=== PATIENT | male | born 1960 | race Caucasian/White ===

== ENCOUNTER 2021-11-01 20:40 | Observation (INO) | payer BC, SELFPAY ==
[2021-11-01 20:55] VITALS: BP 161/98; PULSE 98; RESP 18; TEMP 36.8; O2SAT 98
[2021-11-02] VITALS (10 sets, daily range): BP systolic 129–170; BP diastolic 77–98; PULSE 77–920; RESP 16–18; TEMP 36.7–37.2; O2SAT 93–99; BMI 38.2
--- NOTE | 2021-11-02 | ECHO_ITS ---
Patient Info Name: Bull Lozoya Age: 61 years : 1960 Gender: Male Ht: 68 in Wt: 251 lbs BSA: 2.39 m2 HR: 78 bpm BP: 129 / 86 mmHg Heart Rhythm: Sinus Rhythm Technical Quality: Good Exam Date: 11/02/2021 9:25 AM Exam Location: [facility] Pulmonary Exam Room: [facility] Patient Status: Inpatient Admit Date: 11/02/2021 Staff Ordering Physician: Myesha Lafleur Binding Dyer: Viv Mccloud RDCS Attending Provider: Deneen Edouard MD Referring Physician: Miquel MANLEY; Exam Type: CA echo doppler color flow Study Info Indications - chest pain Complete two-dimensional, color flow and Doppler transthoracic echocardiogram is performed. Summary 1. Complete two-dimensional, color flow and Doppler transthoracic echocardiogram is performed. 2. Left ventricular chamber dimension is normal. 3. Left ventricular systolic function is normal, estimated at 65-70%. 4. There is no aortic valve stenosis. 5. There is trace mitral valve regurgitation. 6. There is trace tricuspid valve regurgitation. 7. No pulmonary hypertension, estimated pulmonary arterial systolic pressure is 32 mmHg. Left Ventricle Left ventricular chamber dimension is normal. Left ventricular systolic function is normal, estimated at 65-70%. There is no increased left ventricular wall thickness. The left ventricular diastolic function is normal. Right Ventricle Right ventricular chamber dimension is normal. Right ventricular systolic function is normal. Left Atria Left atrial chamber dimension is normal. Right Atria Right atrial chamber dimension is normal. Aortic Valve The aortic valve is trileaflet. There is no aortic valve stenosis. There is trace aortic valve regurgitation. Pulmonic Valve The pulmonic valve is not well visualized. There is trace pulmonic regurgitation. Mitral Valve The mitral valve has thickened leaflets. There is trace mitral valve regurgitation. Tricuspid Valve The tricuspid valve leaflets are normal. There is trace tricuspid valve regurgitation. No pulmonary hypertension, estimated pulmonary arterial systolic pressure is 32 mmHg. Pericardium/Pleural The pericardium appears normal. There is no pericardial effusion. Inferior Vena Cava Normal inferior vena cava with >50% collapse upon inspiration consistent with normal right atrial pressure, 5 mmHg. Aorta The aortic root size at the sinus of Valsalva is normal. There is mild aortic atherosclerosis. Left Ventricular Outflow Tract Name Value Normal LVOT 2D LVOT Diameter 2.1 cm LVOT Doppler LVOT Peak Gradient 6 mmHg LVOT Mean Gradient 3 mmHg LVOT VTI 23 cm LVOT VTI/AV VTI Ratio 0.9 LVOT Stroke Volume 76 ml LVOT CO 17.4 l/min LVOT CI 7.3 l/min/m2 Pulmonic Valve Name Value Normal --
--- NOTE | 2021-11-02 02:18 | ED.GENADULT ---
[facility] - General Adult General Chief complaint: Unspecified Stated complaint: pain with inspiration Time Seen by Provider: 11/02/21 02:17 Source: patient Mode of arrival: ambulatory Limitations: no limitations History of Present Illness HPI narrative: Patient is a 61-year-old male complaining of chest pain, substernal, 6 out of 10, indigestion , radiating to upper chest and neck, worse with exertion, started today. Patient denies any shortness of breath, abdominal pain, nausea, vomiting, diaphoresis, fever or chills. Related Data Home Medications Medication Instructions Recorded Confirmed No Home Medications 11/02/21 11/02/21 Allergies Allergy/AdvReac Type Severity Reaction Status Date / Time No Known Allergies Allergy Verified 11/02/21 03:07 Review of Systems Review of Systems: All systems reviewed & are unremarkable except as noted in HPI and below Constitutional: Constitutional: Denies body ache(s), Denies chills, Denies excessive sweating, Denies fatigue, Denies fever(s), Denies headache(s), Denies lethargy, Denies malaise, Denies weakness and Denies weight loss Eyes: Eyes: Denies blurry vision, Denies change in vision and Denies loss of vision ENT: Denies dizziness, Denies ear discharge, Denies headache(s), Denies lip swelling, Denies epistaxis, Denies nasal congestion, Denies neck pain, Denies throat swelling and Denies tongue swelling Cardiovascular: Cardiovascular: Denies diaphoresis, Denies rapid heart rate, Denies edema, Denies irregular heart rhythm, Denies lightheadedness, Denies palpitations, Denies dyspnea and Denies dyspnea on exertion Respiratory: Respiratory: Denies chest congestion, Denies cough, Denies hemoptysis, Denies dyspnea and Denies dyspnea on exertion Gastrointestinal: Gastrointestinal: Denies abdominal pain, Denies melena, Denies hematochezia, Denies diarrhea, Denies nausea, Denies vomiting and Denies hematemesis Musculoskeletal: Musculoskeletal: Denies abnormal gait, Denies deformity, Denies joint swelling, Denies limited range of motion, Denies neck pain and Denies numbness Neurologic: Denies Abnormal speech present, Denies abnormal gait, Denies confusion, Denies dizziness, Denies headache(s), Denies focal weakness, Denies loss of vision, Denies numbness, Denies Other visual disturbances, Denies Sensory deficit (Neuro) and Denies weakness Psychiatric: Psychiatric: Denies confusion, Denies depression, Denies auditory hallucinations, Denies homicidal ideation and Denies suicidal ideation Endocrine: Endocrine: Denies cold intolerance, Denies excessive sweating, Denies fatigue, Denies heat intolerance and Denies palpitations Hematologic/Lymphatic: Hematologic/Lymphatic: Denies easy bleeding and Denies easy bruising Allergic/Immunologic: Allergic/Immunologic: Denies lip swelling, Denies throat swelling and Denies tongue swelling PMF Social History Social History Smoking status: Never smoker Alcohol intake: current Comments Past medical history: None Family history: Positive for coronary artery disease Social history: Chews tobacco, drinks beer daily, denies any drug use Exam Const: General: cooperative, healthy appearing, comfortable, no acute distress, well developed, alert and awake; No confusion Orientation/consciousness: oriented to person, oriented to place, oriented to time, patient oriented x3 and No confusion Limitations: no limitations HENMT: Head: normal to inspection, normocephalic and atraumatic Ears: hearing grossly normal bilaterally, TM normal on the right and TM normal on the left General nose exam: Normal external nose present, Normal nares present and No nasal discharge present Face and sinus: normal facial exam Mouth: Yes Normal oral and palatal mucosa present, Yes lip normal, Yes tongue normal and Yes oropharynx normal Throat: posterior oropharynx normal, tonsils normal and uvula midline Eyes: General: appearance normal, both eyes and all related structures
--- NOTE | 2021-11-02 02:19 | ECG_ITS ---
Measurements Intervals [place] Rate: 88 P: 39 TX: 179 QRS: -2 QRSD: 90 T: 5 QT: 347 QTc: 420 Interpretive Statements SINUS RHYTHM CONSIDER INFERIOR INFARCT, AGE INDETERMINATE BASELINE ARTIFACT- I, II, III, AVR, AVL, AVF, V1, V3-V6 ABNORMAL ECG Electronically Signed On 11-02-2021 6:42:09 FOREST RESOURCE SPECIALIST by Jairo Adames D.O.
[2021-11-02 02:53] LABS: Basophils Percent Auto 0.3 % (0.2-1.2); Eosinophils Absolute Auto 0.1 K/mm3 (0-0.3); Eosinophils Percent Auto 0.8 % (0-4.4); Hematocrit 44.7 % (42.0-52.0); Hemoglobin 14.5 g/dL (14.0-18.0); Immature Granulocyte Absolute 0.02 K/mm3 (0.00-0.031); Immature Granulocyte Percent A 0.3 % (0-0.5); Lymphocytes Absolute Auto 1.71 K/mm3 (0.9-3.2); Mean Corpuscular HGB Conc 32.4 g/dl (32-36); Mean Corpuscular Hemoglobin 28.4 pg (26-34); Mean Corpuscular Volume 87.6 fl (80-100); Mean Platelet Volume 8.8 fl (7.4-10.4); Monocytes Absolute Auto 0.8 K/mm3 (0.1-0.6); Monocytes Percent Auto 10.7 % (2.6-8.5); Neutrophils Absolute Auto 5.2 K/mm3 (1.3-6.7); Neutrophils Percent Auto 65.9 % (45.5-73.1); Platelet Count Result 188 k/mm3 (150-375); Red Cell Distribution Width 12.9 % (11.5-14.5); White Blood Count 7.8 K/mm3 (4.5-10.0)
[2021-11-02 03:02] LABS: Alanine Aminotransferase 25 U/L (4-50); Albumin Level 4.4 g/dL (3.5-5.1); Alkaline Phosphatase 96 U/L (38-126); Anion Gap 6 mmol/L (8-16); Aspartate Amino Transferase 20 U/L (17-59); Bilirubin,Total 0.7 mg/dL (0.2-1.3); Blood Urea Nitrogen 12 mg/dL (9-20); Calcium 9.3 mg/dL (8.4-10.2); Carbon Dioxide 29 mmol/L (22-30); Chloride 101 mmol/L (98-107); Estimated CRCL calculation 79 ml/min; Estimated Glomerular Filt Rate > 60; Glucose 125 mg/dL (65-110); Lipase 67 U/L (23-300); Potassium 4.4 mmol/L (3.4-5.0); Sodium 136 mmol/L (137-145)
[2021-11-02 03:19] LABS: Troponin I 0.015 ng/mL (0.000-0.034)
[2021-11-02] MEDS: ASPIRIN 81 MG CHEWABLE TABLET 324 MG PO (04:21)
[2021-11-02] MEDS: NITROGLYCERIN OINTMENT 1 INCH DOSE TRANSDERM (04:22)
--- NOTE | 2021-11-02 05:59 | ADMGEN ---
This patient, Bull Lozoya, was admitted to [facility] Surg Room 300-01. Patient/family oriented to hospital policies and general routines including ID bracelet, bed and alarms, visiting hours, pain management, procedures, bathroom and other care routines, personal items, smoking policy, room service/diet, and visiting hours. Information on how to activate the Rapid Response Team has been discussed. Patient/Family are encouraged to report perceived risks to care and to ask questions if they do not understand what they are told or what they should do.
[2021-11-02 07:20] LABS: Troponin I < 0.012 ng/mL (0.000-0.034)
--- NOTE | 2021-11-02 08:47 | PM.SD2 ---
Same Day Admit/Disch: HPI History of Present Illness Chief complaint: Chest Pain Narrative: Bull Lozoya is a 61 year old man with a past medical history of obesity and tobacco use who has been admitted after presenting to the ED with complaints of epigastric pain. He tells me that around 1100 yesterday morning he had a bowl of cereal and some homemade cookies when his symptoms began. He rated the pain 6/10 at worst. He reported associated neck pain. He was initially evaluated in and was given 324 mg of ASA and sent here. He denied any JAY, dizziness, SOB, diaphoresis, palpitations, nausea of vomiting. He denies any previous episodes in the past. He denies any history or CAD, family history of CAD or GERD. His symptoms have since resolved. ED evaluation included and revealed: heart score 4; troponin negative x2; CBC and CMP unremarkable. ECG interpretation showed normal rate (Heart rate 88), sinus rhythm, normal QT, NL axis and other (Normal AK interval). He has been admitted to observation status for further treatment and evaluation. The patient underwent echocardiogram which showed an ejection fraction 65-70%. The patient denies any chest pain and is medically stable for discharge. Epigastric pain with associated symptoms highly suggestive for GERD.Pt has been given instruction to follow up with his PCP. [facility] Family History Family History Father Congestive heart failure Social History Social History Smoking status: Former smoker Smokeless tobacco user: chewing tobacco Alcohol intake: current Drinks per week: 24 Substance use: never Spiritual care concerns: No Same Day Admit/Disch: Med Pre-admit Medications Home Medications Medication Instructions Recorded Confirmed Type No Home Medications 11/02/21 11/02/21 History Exam Const: General: no acute distress, alert and awake Orientation/consciousness: patient oriented x3 HENMT: Head: normocephalic and atraumatic Ears: hearing grossly normal bilaterally and external ears normal Face and sinus: face symmetric Mouth: Yes Normal oral and palatal mucosa present Eyes: Pupils: Equal, round and reactive pupils present EOM: EOMs intact bilaterally Neck: Neck: full ROM, trachea midline and no JVD Chest: Chest palpation & inspection: normal inspection of the chest Resp: Effort & Inspection: normal respiratory effort Auscultation: clear to auscultation bilaterally Cardio: Jugular venous distension: no JVD Rate: regular rate Rhythm: regular rhythm Heart sounds: S1 normal heart sound present and S2 normal heart sound present GI: Inspection: obesity GI Palp: Yes Soft to palpation Auscultation: normal bowel sounds : General: Yes no CVA tenderness Skin: General skin exam: normal color Rashes: no rashes Neuro: General: patient oriented x3, no focal motor deficits and CN's II-XI intact bilaterally Cranial nerves: Yes Equal, round and reactive pupils present Speech: normal speech Extrem: General: no clubbing, cyanosis or edema Psych: Appearance: grossly normal Affect: normal affect Judgement: Good judgement present (Psych) DS: Data Data Completed and Pending Labs on day of discharge: Labs from last 24 hours 11/02/21 11/02/21 11/02/21 06:07 02:46 02:46 WBC RBC Hgb Hct MCV MCH MCHC RDW Plt Count MPV Immature Gran % (Auto) Neut % (Auto) Lymph % (Auto) Armstrong % (Auto) Eos % (Auto) Baso % (Auto) Lymph # (Auto) Armstrong # (Auto) Eos # (Auto) Baso # (Auto) Abs Immat Gran (auto) Absolute Neuts (auto) Absolute Nucleated RBC Nucleated RBC % Sodium 136 L Potassium 4.4 Chloride 101 Carbon Dioxide 29 Anion Gap 6 L BUN 12 Creatinine 1.00 Estim Creat Clear Calc 79 Estimated GFR > 60 Glucose 125 H Calcium 9.3 Total Bilirubin 0.7 AST 20 ALT 25 Alkaline Phosphat
[2021-11-02 09:31] LABS: Troponin I < 0.012 ng/mL (0.000-0.034)
[2021-11-02 10:30] LABS: Magnesium 2.3 mg/dL (1.6-2.3)
== END 2021-11-02 16:01 | disposition home or self-care (01) ==
LOC: ANHED 11-02 03:57 → ANH3MEDSUR 11-02 04:18
PROVIDERS: Nurse Practitioner Adult Health; Admitting Provider Internal Medicine; Emergency Provider Emergency Medicine; PCP Family Medicine; Visit Provider Internal Medicine
DX: R07.9 Chest pain, unspecified (principal); K21.9 Gastro-esophageal reflux disease without esophagitis; F17.220 Nicotine dependence, chewing tobacco, uncomplicated
CPT/HCPCS: 36415; 80053; 83690; 83735; 84484; 85025; 93005; 93306; 99285; A9270; G0378

== ENCOUNTER → 2022-10-05 11:28 | Outpatient (CLI) | payer BC, SELFPAY ==
--- NOTE | ~2022-10-05 | XR_ITS ---
XR knee RT min 4V DATE: 10/05/2022 11:48 INDICATION: Anterior knee pain for 2 years. No recent injury. TECHNIQUE: [place] and standing AP, PA and lateral views COMPARISON: None FINDINGS: Prominent superior pole patellar enthesopathy at quadriceps tendon insertion. There is mild periarticular patellar spurring. There is mild particular spurring of the medial tibial plateau and mild loss of medial compartment joint space. No fracture or dislocation, periosteal reaction or bone destruction. No radiopaque intra-articular lo ose body or chondrocalcinosis. Cannot exclude small suprapatellar knee joint effusion. IMPRESSION: Mild osteoarthritis involving medial and patellofemoral compartments Cannot exclude mild suprapatellar knee joint effusion Reviewed, dictated and finalized at location B. UNITY ENGAGEMENT MANAGER IMPRESSION: Mild osteoarthritis involving medial and patellofemoral compartment s Cannot exclude mild suprapatellar knee joint effusion
== END ==
PROVIDERS: PCP Family Medicine; Visit Provider Family Medicine
DX: M25.561 Pain in right knee (principal); M17.11 Unilateral primary osteoarthritis, right knee
CPT/HCPCS: 73564

== ENCOUNTER 2024-09-24 11:09 | Outpatient (CLI) | payer MEDICARE, SELFPAY ==
--- NOTE | ~2024-09-24 | XR_ITS ---
XR hand RT 2V Ordering provider: Myesha Keane APRN History: . No injury bilateral hand pain and swelling for years . Comparison: None. FINDINGS: BONES: No acute fracture or dislocation. JOINT SPACES: Narrowing of the proximal and distal interphalangeal joints. Narrowing of the first, se cond and third metacarpophalangeal joints. Osteoarthritic changes of the first carpometacarpal joint. SOFT TISSUES: Normal. IMPRESSION: No acute osseous abnormality right hand. polyarticular osteoarthritic changes. Reviewed, dictated and finalized at location A. ING SUPERVISOR
--- NOTE | ~2024-09-24 | XR_ITS ---
XR hand LT 2V Ordering provider: Myesha Keane APRN History: . No injury bilateral hand pain and swelling for years . Comparison: None. FINDINGS: BONES: No acute fracture or dislocation. Sclerotic lesion seen in the proximal phalanx of the second finger which may be bone island. Follow-up advised. JOINT SPACES: Narrowing of the proximal and distal interphalangeal joints Osteoarthritic changes of the first carpometacarpal joint. SOFT TISSUES: Unremarkable. IMPRESSION: No acute osseous abnormality left hand. Polyarticular osteoarthritic changes. Reviewed, dictated and finalized at location A. PHONE QUOTATION CLERK
== END 2024-09-24 11:10 | disposition home or self-care (01) ==
PROVIDERS: PCP Family Medicine; Visit Provider Nurse Practitioner Adult Health
DX: M19.042 Primary osteoarthritis, left hand (principal); M19.041 Primary osteoarthritis, right hand
CPT/HCPCS: 73120

== ENCOUNTER 2025-07-08 01:16 | Day surgery (SDC) | payer MEDICARE, BC, SELFPAY ==
[2025-07-01 08:38] VITALS: BMI 39.6
[2025-07-08 08:44] VITALS: BP 185/91; PULSE 72; RESP 16; TEMP 36.3; O2SAT 99
[2025-07-08] MEDS: LACTATED RINGERS 1,000 ML 150 ML IV CONT (09:02)
--- NOTE | 2025-07-08 09:04 | SUR.PREOP ---
Pt ate bread at 1700 07/07/2025. Notified Dr. Tripp he is okay proceeding. Patient used chewing tobacco at [address] Fonseca and he is okay proceeding with procedure.
--- NOTE | 2025-07-08 09:06 | SUR.PREOP ---
Patient's blood pressure is 185/91. Notified Dr. Fonseca.
--- NOTE | 2025-07-08 09:33 | WPDANESEPPF ---
Anes - Initial Pre Proc Eval Procedure: Operation Date: 07/08/25 10:00 Proposed Procedures p Screening Colonoscopy - Juno Tripp DO Date/Time: 07/08/25 09:33 Surgeon: Juno Tripp DO Pre Op Diagnosis: Neoplasm screening Patient Data Age: 65 Gender: M Height: 1.73 m Weight: 118.2 kg Last Vital Signs Temp 36.3 C L 07/08/25 08:44 Pulse 72 07/08/25 08:44 Resp 16 07/08/25 08:44 BP 185/91 H 07/08/25 08:44 Pulse Ox 99 07/08/25 08:44 O2 Del Method Room Air 07/08/25 08:44 Allergies Allergy/AdvReac Type Severity Reaction Status Date / Time ezetimibe (From [facility]) Allergy Mild Rash Verified 07/29/25 09:06 Home Medications ?Medication ?Instructions ?Recorded ?Confirmed ?Type pantoprazole 40 mg tablet,delayed 40 mg PO QAM #90 tabs 11/17/24 07/29/25 Rx release atorvastatin 80 mg tablet 80 mg PO QHS #90 tabs 06/08/25 07/29/25 Rx hydroxychloroquine 200 mg tablet 200 mg PO DAILY 06/08/25 07/29/25 History [id number]-[id number]-[id number] 3.5 1 drp RIGHT EYE DAILY 06/08/25 07/29/25 History mg/mL-10,000 unit/mL-0.1% eye drops meloxicam 15 mg tablet 15 mg PO DAILY pain #30 tabs 07/29/25 07/29/25 Rx Patient hx anesthesia problems: none Family hx anesthesia problems: none Results Review: All pre-operative results and documents have been reviewed as part of the pre-operative evaluation. [facility] Past Medical History Medical History SLE (systemic lupus erythematosus) Rheumatoid arthritis Hyperlipidemia Screening for colon cancer Tobacco use Encounter for Medicare annual wellness exam Chest pain Elevated antinuclear antibody (CELINE) level Wellness examination Screening for thyroid disorder Hand edema Knee pain, right Osteoarthritis of right knee Adult BMI 39.0-39.9 kg/sq m Screening for prostate cancer Screening for lipid disorders BMI 38.0-38.9,adult Family History Family History Father Congestive heart failure Social History Social History Smoking status: Never smoker (chews tobacco) Tobacco type: smokeless tobacco Smokeless tobacco user: chewing tobacco Additional smoking assessment comments: has used chewing tobacco 60 years Alcohol intake: current Drinks per week: 18 Substance use: never Substance use type: does not use Do You Feel Safe in your Home?: Yes Lack of Transportation: No Lack of Food: Never True Current Housing: I Have Housing Concerned About Future Housing: No Difficulty Paying Gas/Electric Bills: No Difficulty Paying for Meds: No Currently Unemployed: No Difficulty w/ Childcare or Family Care: No Living arrangements: with family Spiritual care concerns: No Anes - Eval Final PreProcedure Day of Procedure 07/08/25 09:33 Patient weight: obese Heart: regular rate and rhythm Lungs: clear to auscultation Airway: Mallampati scale class II Neurological: alert and oriented Last oral intake: >/= 8 hours ASA classification: III Emergent: no Anesthetic plan: proceed Anesthesia type and monitoring: general GIVS and standard monitoring Results Review: All pre-operative results and documents have been reviewed as part of the pre-operative evaluation. Informed Consent: The patient's anesthetic plan and its attendant risks and benefits were discussed with the patient/family/POA. Questions were solicited and answers provided to the satisfaction of the patient/family/POA.
--- NOTE | 2025-07-08 10:08 | PM.IMHP ---
H&P: HPI History of Present Illness Date/Time: 07/08/25 10:08 Chief Complaint: screening for colorectal cancer Narrative: this is a 65-year-old man who presents for his 1st colonoscopy. He denies any history of bowel habit changes, hematochezia, or melena. Denies any family history of colon cancer. Review of Systems Review of Systems: All systems reviewed & are unremarkable except as noted in HPI and below Constitutional: Constitutional: Denies chills, Denies fever(s), Denies headache(s) and Denies weight loss Eyes: Eyes: Denies change in vision ENT: Denies dizziness, Denies headache(s), Denies neck mass and Denies throat swelling Cardiovascular: Cardiovascular: Denies chest pain, Denies lightheadedness and Denies dyspnea Respiratory: Respiratory: Denies cough, Denies dyspnea and Denies wheezing Gastrointestinal: Gastrointestinal: Denies abdominal pain, Denies change in bowel habits, Denies nausea and Denies vomiting Genitourinary: Genitourinary: Denies hematuria and Denies dysuria Musculoskeletal: Musculoskeletal: Reports as per HPI Integumentary/Breasts: Skin/Breast: Reports as per HPI Neurologic: Denies dizziness and Denies headache(s) Allergic/Immunologic: Allergic/Immunologic: Denies throat swelling and Denies wheezing [facility] Past Medical History Medical History (Updated 07/07/25 @ 11:30 by Mohan Fonseca DO) SLE (systemic lupus erythematosus) Rheumatoid arthritis Hyperlipidemia Screening for colon cancer Tobacco use Encounter for Medicare annual wellness exam Chest pain Elevated antinuclear antibody (CELINE) level Wellness examination Screening for thyroid disorder Hand edema Knee pain, right Osteoarthritis of right knee Adult BMI 39.0-39.9 kg/sq m Screening for prostate cancer Screening for lipid disorders BMI 38.0-38.9,adult Family History Family History Father Congestive heart failure Social History Social History Smoking status: Never smoker (chews tobacco) Tobacco type: smokeless tobacco Smokeless tobacco user: chewing tobacco Additional smoking assessment comments: has used chewing tobacco 60 years Alcohol intake: current Drinks per week: 18 Substance use: never Substance use type: does not use Living arrangements: with family Spiritual care concerns: No Meds Home Medications and Allergies Home Medications ?Medication ?Instructions ?Recorded ?Confirmed ?Type meloxicam 15 mg tablet 15 mg PO DAILY PRN pain #30 tabs 11/04/24 07/01/25 Rx pantoprazole 40 mg tablet,delayed 40 mg PO QAM #90 tabs 11/17/24 07/08/25 Rx release atorvastatin 80 mg tablet 80 mg PO QHS #90 tabs 06/08/25 07/08/25 Rx hydroxychloroquine 200 mg tablet 200 mg PO DAILY 06/08/25 07/08/25 History [id number]-addcvhccz-oovklclx 3.5 1 drp RIGHT EYE DAILY 06/08/25 07/08/25 History mg/mL-10,000 unit/mL-0.1% eye drops Allergies Allergy/AdvReac Type Severity Reaction Status Date / Time ezetimibe (From [facility]) Allergy Mild Rash Verified 07/08/25 08:43 Vital Signs Vital Signs - 24 hr 07/08/25 08:44 Temperature 97.4 F L Pulse Rate 72 Respiratory Rate 16 Blood Pressure 185/91 H Pulse Oximetry 99 Oxygen Delivery Room Air Exam Const: General: no acute distress and alert Orientation/consciousness: patient oriented x3 HENMT: Head: normocephalic and atraumatic Ears: hearing grossly normal bilaterally Face/Nose/Sinus: Normal nares present Mouth: Yes Normal oral and palatal mucosa present Eyes: Periorbital: periorbital findings normal Sclera: sclerae normal EOM: EOMs intact bilaterally Neck: Neck: normal visual inspection, no lymphadenopathy and trachea midline Chest: Chest palpation & inspection: normal inspection of the chest Resp: Effort & Inspection: normal respiratory effort Auscultation: clear to auscultation bilaterally Cardio: Jugular venous distension: no JVD Rate: regular rate Rhythm: regular rhythm Heart sounds: S1 normal heart sound present and S2 normal heart sound present Peripheral pulses: Peripheral pulses 2+ throughout GI: Inspection: normal to inspection GI Palp: Yes Soft to palpation, No Tenderness to palpation present (GI), No Guarding due to palpation present (GI) and No Rebound tenderness present Percussion: Yes normal to percussion Auscultation: normal bowel sounds : General: Yes no CVA tenderness Back/Spine/Pelvis: Back: no CVA tenderness Neuro: General: patient oriented x3, no focal motor deficits and CN's II-XI intact bilaterally Cognition (Neuro): normal cognition Speech: normal speech Motor exam (neuro): 5/5 motor strength present throughout Extrem: General: capillary refill normal and no clubbing, cyanosis or edema Assessment and Plan Assessment and plan (1) Screening for colon cancer: Code(s): Z12.11 - Encounter for screening for malignant neoplasm of colon Status: Acute Assessment and Plan: I have recommended colonoscopy. I have discussed the procedure, risks, benefits, and alternatives. Questions were answered. Patient is agreeable to proceed.
--- NOTE | 2025-07-08 10:38 | S_PTH ---
PATIENT: Bull Lozoya LOC: [facility] U#:[id number] AGE/SX: 65/M ROOM: RE07/08/[address]: Juno Tripp DO : 1960 BED: DIS: 07/08/2025 SPEC #: [id number] RECD: 07/08/25 11:39 STATUS: MOUSTAPHA REQ #: [id number] BRIEN: 07/08/25 10:[address]: Juno Tripp DEPT: [facility] Surgical RECD BY: Ana Okeefe ENTERED: 07/08/25 11:40 SP TYPE: Surgical OTHR DR: Curtis Cole MD Tissues: A - Colon Polypectomy B - Rectal Polyp Procedures: Hematoxylin and Eosin Stain Gross and Microscopic Level 4
[2025-07-08 10:42] VITALS: BP 127/78; PULSE 72; RESP 23; O2SAT 98
[2025-07-08 10:52] VITALS: BP 131/86; PULSE 80; RESP 21; O2SAT 99
[2025-07-08 11:02] VITALS: BP 139/81; PULSE 63; RESP 19; O2SAT 100
== END 2025-07-08 11:12 | disposition home or self-care (01) ==
PROVIDERS: PCP Family Medicine; Visit Provider Surgery
PROC: 0DJD8ZZ Inspection of Lower Intestinal Tract, Via Natural or Artificial Opening Endoscopic (ICD-10-PCS; CPT 45378; principal; 2025-07-08 10:00)
DX: Z12.11 Encounter for screening for malignant neoplasm of colon (principal); K63.5 Polyp of colon; K62.1 Rectal polyp; E78.5 Hyperlipidemia, unspecified; M17.11 Unilateral primary osteoarthritis, right knee; M32.9 Systemic lupus erythematosus, unspecified; M06.9 Rheumatoid arthritis, unspecified; F17.220 Nicotine dependence, chewing tobacco, uncomplicated; Z82.49 Family history of ischemic heart disease and other diseases of the circulatory system
CPT/HCPCS: 45385; 88305; J2003; J2704; J7120